=== PATIENT | female | born 1975 | race Caucasian/White ===

== ENCOUNTER 2016-09-20 04:29 | Emergency (ER) | payer OTHER ==
[~2016-09-20] VITALS: Ht 160 cm; Wt 64.0 kg
[~2016-09-20 04:29] MED LIST: HYDR-906 PO; MULT1TAB59 PO; ONDA4TAB11 PO
[2016-09-20 04:33] VITALS: Ht 160 cm; Wt 64.0 kg
[2016-09-20] MEDS ORDERED: DICLOFENAC SODIUM 37.5 MG/ML VIAL IV STA (05:31)
[2016-09-20 05:34] LABS: ADD SCAN DIFF NO
[2016-09-20 05:38] LABS: BASOPHIL # 0.1 10^3/ul (0.0-0.1); BASOPHILS % 0.9 % (0.0-2.0); EOSINOPHILS # 0.2 10^3/ul (0.0-0.5); HEMATOCRIT 36.3 % (37.0-47.0); HEMOGLOBIN 12.4 g/dl (12.0-16.0); LYMPHOCYTES # 2.6 10^3/ul (0.8-2.9); LYMPHOCYTES % 33.2 % (15.0-51.0); MEAN CORPUSCULAR HEMOGLOBIN 30.9 pg (29.0-33.0); MEAN CORPUSCULAR HGB CONC 34.2 g/dl (32.0-37.0); MEAN CORPUSCULAR VOLUME 90.5 fl (82.0-101.0); MEAN PLATELET VOLUME 9.9 fl (7.4-10.4); MONOCYTE # 0.7 10^3/ul (0.3-0.9); MONOCYTES % 9.5 % (0.0-11.0); NEUTROPHIL # 4.1 10^3/ul (1.6-7.5); NEUTROPHILS % 53.1 % (39.0-77.0); PLATELET COUNT 246 10^3/UL (140-415); RED BLOOD COUNT 4.01 10^6/ul (4.20-5.40); RED CELL DISTRIBUTION WIDTH 13.3 % (11.5-14.5); WHITE BLOOD COUNT 7.7 10^3/ul (4.8-10.8)
[2016-09-20] MEDS ORDERED: CITA-104 PO (05:39)
[2016-09-20] MEDS ORDERED: CLON1TAB3 PO (05:39)
[2016-09-20] MEDS ORDERED: QUET25TA33 PO (05:39)
[2016-09-20] MEDS ORDERED: HYDROmorphONE 1 MG/ML SYG IV STA (05:43)
[2016-09-20 05:58] LABS: ADD UMIC YES; URINE BILIRUBIN (Dip) NEGATIVE (NEGATIVE); URINE BLOOD (Dip) 3+ (NEGATIVE); URINE COLOR RED (YELLOW); URINE GLUCOSE (Dip) NEGATIVE (NEGATIVE); URINE KETONES (Dip) NEGATIVE (NEGATIVE); URINE LEUKOCYTE ESTERASE (Dip) TRACE (NEGATIVE); URINE NITRITE (Dip) NEGATIVE (NEGATIVE); URINE TOTAL PROTEIN (Dip) TRACE (NEGATIVE); URINE UROBILINOGEN (Dip) 0.2 E.U./dL (0.1-1.0)
[2016-09-20 05:59] LABS: ALBUMIN 4.2 g/dl (3.3-4.9); BILIRUBIN,INDIRECT 0.1 mg/dl (0-1.1); BILIRUBIN,TOTAL 0.1 mg/dl (0.2-1.3); CALCIUM 8.9 mg/dl (8.4-10.2); CREATININE 0.8 mg/dl (0.44-1.00); POTASSIUM 4.2 mmol/L (3.5-5.1); TOTAL PROTEIN 6.3 g/dl (6.1-8.1)
[2016-09-20] MEDS ORDERED: ONDA4TAB14 PO (06:11)
[2016-09-20] MEDS ORDERED: NITR-58 PO (06:11)
[2016-09-20 06:12] LABS: MUCUS,URINE MODERATE; SQUAMOUS EPITHELIAL CELL,UR FEW; URINE RBCS >200 /HPF (0)
[2016-09-20] MEDS ORDERED: ACETAMINOPHEN 325 MG TAB PO ONE (06:30)
--- NOTE | 2016-09-20 07:31 | ERD ---
ER Documentation Chief Complaint Date/Time DATE: 09/20/16 TIME: 07:29 Chief Complaint RUQ abd pain x 1 day HPI Patient is a 41-year-old female with anxiety who presents with abdominal pain as well as vomiting and diarrhea. The symptoms started yesterday. It right upper quadrant pain which radiates to her back. She also says that she is urinating blood now. She was seen [facility] today for the same complaint and was given morphine and tramadol. Upon review of old medical records this is the patient's 11th visit to the ER since 2011 and review of the emergency department information exchange shows visits to 2 separate emergency departments. ROS All systems reviewed and are negative except as per history of present illness. Medications Home Meds Active Scripts Nitrofurantoin Monohyd Macrocr* (Macrobid*) 100 Mg Capsr, 100 MG PO BID for 7 Days, CAP Prov:ERASMO EPSTEIN MD 09/20/16 Ondansetron (Ondansetron Odt) 4 Mg Tab.rapdis, 4 MG PO Q6H Y for NAUSEA AND/OR VOMITING, #10 TAB Prov:ERASMO EPSTEIN MD 09/20/16 Reported Medications Citalopram Hydrobromide* (Citalopram Hydrobromide*) 40 Mg Tablet, 40 MG PO DAILY , #30 TAB 09/20/16 Quetiapine Fumarate* (Quetiapine Fumarate*) 25 Mg Tablet, 75 MG PO HS, TAB 09/20/16 Clonazepam* (Clonazepam*) 1 Mg Tablet, 5 MG PO Q8H Y for ANXIETY, TAB 09/20/16 Multivitamins* (Multivitamins*) 1 Tab Tablet, 1 TAB PO daily 04/29/12 Discontinued Scripts Ondansetron (Zofran Odt) 4 Mg Tab.rapdis, 4 MG PO Q6, #10 Prov:ANABEL JHA DO 02/05/16 Hydrocodone/Acetaminophen ([place] 5-325 Tablet) 1 Each Tablet, 1 EACH PO Q6, #20 TAB Prov:ANABEL JHA DO 02/05/16 Allergies Allergies: Coded Allergies: morphine (Verified Allergy, Unknown, itch, 09/20/16) sulfamethoxazole (Unverified Allergy, Unknown, 09/20/16) trimethoprim (Unverified Allergy, Unknown, 09/20/16) PMhx/Soc History of Surgery: Yes (appendectomy, left wrist surgery) Anesthesia Reaction: No Hx Neurological Disorder: No Hx Respiratory Disorders: No Hx Cardiac Disorders: No Hx Psychiatric Problems: No Hx Miscellaneous Medical Probl: Yes (mesenteric adenitis) Hx Alcohol Use: Yes (occassional) Hx Substance Use: No Hx Tobacco Use: No Smoking Status: Never smoker FmHx Family History: No diabetes Physical Exam Vitals Vital Signs Date Time Temp Pulse Resp B/P Pulse Ox O2 Delivery O2 Flow Rate FiO2 09/20/16 05:27 80 20 114/92 99 Room Air 09/20/16 04:33 97.7 96 20 107/69 99 Physical Exam Const: Moderate distress secondary to pain Head: Atraumatic Eyes: Normal Conjunctiva ENT: Normal External Ears, Nose and Mouth. Neck: Full range of motion..~ No meningismus. Resp: Clear to auscultation bilaterally Cardio: Regular rate and rhythm, no murmurs Abd: Soft, diffuse tenderness to palpation without rebound or guarding Skin: No petechiae or rashes Back: No midline or flank tenderness Ext: No cyanosis, or edema Neur: Awake and alert Psych: Normal Mood and Affect Result Diagram: 09/20/1652009/20/16520 Results 24 hrs Laboratory Tests Test 09/20/16 05:20 09/20/16 05:21 09/20/16 06:50 Urine Color RED Urine Clarity CLEAR Urine pH 5.0 Urine Specific [place] 1.010 Urine Ketones NEGATIVE Urine Nitrite NEGATIVE Urine Bilirubin NEGATIVE Urine Urobilinogen 0.2 E.U./dL Urine Leukocyte Esterase TRACE Urine Microscopic RBC >200/HPF Urine Microscopic WBC 5-10/HPF Urine Squamous Epithelial Cells FEW Urine Mucus MODERATE Urine Hemoglobin 3+ Urine Glucose NEGATIVE% Urine Total Protein TRACE White Blood Count 7.710^3/ul Red Blood Count 4.0110^6/ul Hemoglobin 12.4g/dl Hematocrit 36.3% Mean Corpuscular Volume 90.5fl Mean Corpuscular Hemoglobin 30.9pg Mean Corpuscular Hemoglobin Concent 34.2g/dl Red Cell Distribution Width 13.3% Platelet Count 65391^3/UL Mean Platelet Volume 9.9fl Neutrophils % 53.1% Lymphocytes % 33.2% Monocytes % 9.5% Eosinophils % 3.0% Basophils % 0.9% Nucleated Red Blood Cells % 0.0/100WBC Neutrophils # 4.110^3/ul Lymphocytes # 2.610^3/ul Monocytes # 0.710^3/ul Eosinophils # 0.210^3/ul Basophils # 0.110^3/ul Nucleated Red Blood Cells # 0.010^3/ul Sodium Level 140mmol/L Potassium Level 4.2mmol/L Chloride Level 108mmol/L Carbon Dioxide Level 27mmol/L Anion Gap 9 Blood Urea Nitrogen 13mg/dl Creatinine 0.80mg/dl Glucose Level 78mg/dl Calcium Level 8.9mg/dl Total Bilirubin 0.1mg/dl Direct Bilirubin 0.00mg/dl Indirect Bilirubin 0.1mg/dl Aspartate Amino Transf (AST/SGOT) 19IU/L Alanine Aminotransferase (ALT/SGPT) 31IU/L Alkaline Phosphatase 46IU/L Total Protein 6.3g/dl Albumin 4.2g/dl Globulin 2.10g/dl Albumin/Globulin Ratio 2.00 Lipase 402U/L Serum HCG, Qualitative NEGATIVE Current Medications Medications (Trade) Dose Ordered Sig/Murray Route PRN Reason Start Time Stop Time Status Last Admin Dose Admin Diclofenac Sodium (Dyloject) 37.5 mg ONCE STAT IV 09/20/16 05:31 09/20/16 05:39 DC Hydromorphone HCl (Dilaudid) 0.5 mg ONCE STAT IV 09/20/16 05:43 09/20/16 05:45 DC 09/20/16 05:46 Acetaminophen (Tylenol Tab) 650 mg ONCE ONCE PO 09/20/16 06:30 09/20/16 06:31 DC 09/20/16 06:32 Procedures/MDM Patient is a 41-year-old male with anxiety who presents with abdominal pain and hematuria. Laboratory studies are basically normal. I doubt cholecystitis, pancreatitis, appendicitis, or bowel obstruction. I do believe there is an element of pain seeking behavior and I will not give this patient narcotics. She was offered anything nonnarcotic and requested Tylenol which I have given. The patient will be discharged home and can follow-up with her primary doctor within 24 hours. I have also given her information for Dr. Martines her pain management doctor. The patient is not I doubt or ectopic . Departure Diagnosis: Primary Impression: Vomiting and diarrhea Additional Impression: Abdominal pain Abdominal location: unspecified location Qualified Code: R10.9 - Abdominal pain, unspecified location Condition: Fair Patient Instructions: Abdominal Pain, Self-Care for Vomiting and Diarrhea Referrals: GERARDO MARTINES Additional Instructions: FOLLOW UP WITH YOUR PRIMARY CARE PHYSICIAN TOMORROW.Return to this facility if you are not improving as expected. ERASMO EPSTEIN MD Sep 20, 2016 07:31
[2016-09-20 07:32] VITALS: BP 91/73; PULSE 60; RESP 17
== END 2016-09-20 07:35 | disposition home or self-care (01) ==
LOC: E/R 04:29
DX: R11.10 Vomiting, unspecified (principal); R19.7 Diarrhea, unspecified; R40.2142 Coma scale, eyes open, spontaneous, at arrival to emergency department; R40.2252 Coma scale, best verbal response, oriented, at arrival to emergency department; R40.2362 Coma scale, best motor response, obeys commands, at arrival to emergency department
CPT/HCPCS: 80053; 81001; 83690; 84703; 85025; J1170; 36415; 96374

== ENCOUNTER 2016-12-06 08:01 | Inpatient (IN) | payer MEDICAID, OTHER ==
[~2016-12-06] VITALS: Ht 157.5 cm; Wt 58.1 kg
[~2016-12-06 08:01] MED LIST changes: +CITA-104 PO; +CLON1TAB3 PO; -HYDR-906 PO; +NITR-58 PO; -ONDA4TAB11 PO; +ONDA4TAB14 PO; +QUET25TA33 PO
[2016-12-06] MEDS ORDERED: LIDOCAINE/MYLANTA 40 ML BTL PO STA (08:15)
--- NOTE | 2016-12-06 08:28 | ERD ---
ER Documentation Chief Complaint Date/Time DATE: 12/06/16 TIME: 08:26 Chief Complaint Complains of abdominal pain and rectal bleed HPI 41-year-old female history of chronic abdominal pain presents with epigastric abdominal pain, blood in stools that started this morning. She reports sharp pain, nonradiating, worse after eating this morning. She denies any fevers, chills, nausea, vomiting or diarrhea. She states that she swallowed an earring it was a small area 2 weeks ago and has not seen any passage of this in her stool since. ROS All systems reviewed and are negative except as per history of present illness. Medications Home Meds Active Scripts Nitrofurantoin Monohyd Macrocr* (Macrobid*) 100 Mg Capsr, 100 MG PO BID for 7 Days, CAP Prov:ERASMO EPSTEIN MD 09/20/16 Ondansetron (Ondansetron Odt) 4 Mg Tab.rapdis, 4 MG PO Q6H Y for NAUSEA AND/OR VOMITING, #10 TAB Prov:ERASMO EPSTEIN MD 09/20/16 Reported Medications Citalopram Hydrobromide* (Citalopram Hydrobromide*) 40 Mg Tablet, 40 MG PO DAILY , #30 TAB 09/20/16 Quetiapine Fumarate* (Quetiapine Fumarate*) 25 Mg Tablet, 75 MG PO HS, TAB 09/20/16 Clonazepam* (Clonazepam*) 1 Mg Tablet, 5 MG PO Q8H Y for ANXIETY, TAB 09/20/16 Multivitamins* (Multivitamins*) 1 Tab Tablet, 1 TAB PO daily 04/29/12 Allergies Allergies: Coded Allergies: morphine (Verified Allergy, Unknown, itch, 09/20/16) sulfamethoxazole (Unverified Allergy, Unknown, 09/20/16) trimethoprim (Unverified Allergy, Unknown, 09/20/16) PMhx/Soc History of Surgery: Yes (appendectomy, left wrist surgery) Anesthesia Reaction: No Hx Neurological Disorder: No Hx Respiratory Disorders: No Hx Cardiac Disorders: No Hx Psychiatric Problems: No Hx Miscellaneous Medical Probl: Yes (mesenteric adenitis) Hx Alcohol Use: Yes (occassional) Hx Substance Use: No Hx Tobacco Use: No Smoking Status: Never smoker Physical Exam Vitals Vital Signs Date Time Temp Pulse Resp B/P Pulse Ox O2 Delivery O2 Flow Rate FiO2 12/06/16 08:04 98.1 113 20 134/80 99 Physical Exam General: Well-developed, well-nourished. The patient appears in no acute distress. HEENT: Head is normocephalic, atraumatic. No scleral icterus. Pupils are equal , round, and reactive. Oral mucous membranes are moist. No pharyngeal erythema. Neck: Supple. Nontender. Lungs: Clear to auscultation. Normal air movement. Heart: Regular rate and rhythm. S1 and S2 are normal. No murmurs, gallops, or rubs. Abdomen: Soft, tender to palpation in the epigastric region, nondistended. Bowel sounds are normoactive. Negative Bain sign, no McBurney's tenderness Rectal; no BRBPR Extremities: No clubbing or cyanosis. Normal pulses. Moving extremities x 4. No weakness. Neurologic: Alert and oriented 3. No focal deficits. Skin: Normal turgor. No rash or lesions. Result Diagram: 12/06/16 0815 12/06/16 0815 Results 24 hrs Laboratory Tests Test 12/06/16 08:00 12/06/16 08:15 Urine Color YELLOW Urine Clarity SLIGHTLY CLOUDY Urine pH 7.0 Urine Specific [place] 1.005 Urine Ketones NEGATIVEmg/dL Urine Nitrite NEGATIVEmg/dL Urine Bilirubin NEGATIVEmg/dL Urine Urobilinogen NEGATIVEmg/dL Urine Leukocyte Esterase NEGATIVELeu/ul Urine Microscopic RBC 0/HPF Urine Microscopic WBC 1/HPF Urine Squamous Epithelial Cells FEW/HPF Urine Bacteria FEW/HPF Urine Hemoglobin NEGATIVEmg/dL Urine Glucose NEGATIVEmg/dL Urine Total Protein NEGATIVEmg/dl Urine Opiates Screen Negative Urine Barbiturates Negative Urine Amphetamines Screen Negative Urine Benzodiazepines Screen Negative Urine Cocaine Screen Negative Urine Cannabinoids Negative White Blood Count 7.410^3/ul Red Blood Count 4.1510^6/ul Hemoglobin 12.3g/dl Hematocrit 38.1% Mean Corpuscular Volume 91.8fl Mean Corpuscular Hemoglobin 29.6pg Mean Corpuscular Hemoglobin Concent 32.3g/dl Red Cell Distribution Width 13.4% Platelet Count 05018^3/UL Mean Platelet Volume 10.3fl Neutrophils % 63.1% Lymphocytes % 25.1% Monocytes % 8.6% Eosinophils % 2.0% Basophils % 0.9% Nucleated Red Blood Cells % 0.0/100WBC Neutrophils # (Manual) 4.710^3/ul Lymphocytes # 1.910^3/ul Monocytes # 0.610^3/ul Eosinophils # 0.210^3/ul Basophils # 0.110^3/ul Nucleated Red Blood Cells # 0.010^3/ul Sodium Level 144mmol/L Potassium Level 4.4mmol/L Chloride Level 103mmol/L Carbon Dioxide Level 28mmol/L Anion Gap 17 Blood Urea Nitrogen 14mg/dl Creatinine 0.75mg/dl Glucose Level 86mg/dl Calcium Level 9.2mg/dl Total Bilirubin 0.0mg/dl Direct Bilirubin 0.00mg/dl Indirect Bilirubin 0.0mg/dl Aspartate Amino Transf (AST/SGOT) 25IU/L Alanine Aminotransferase (ALT/SGPT) 36IU/L Alkaline Phosphatase 55IU/L Total Protein 6.9g/dl Albumin 3.9g/dl Globulin 3.00g/dl Albumin/Globulin Ratio 1.30 Lipase 146U/L Current Medications Medications (Trade) Dose Ordered Sig/Murray Route PRN Reason Start Time Stop Time Status Last Admin Dose Admin Miscellaneous Medication (Gi Cocktail (2)) 40 ml ONCE STAT PO 12/06/16 08:15 12/06/16 08:17 DC 12/06/16 08:31 Magnesium Citrate (Citroma) 300 ml ONCE ONCE PO 12/06/16 10:30 12/06/16 10:31 Radiology Main Line: [phone] DIAGNOSTIC IMAGING REPORT Patient: KAELYN HORTA : 1975 Age: 41 Sex: F [id number] DOS: 12/06/16 0815 Ordering MD: LIZ MCNULTY PA-C Location: [facility] Room/Bed: PROCEDURE: Abdominal Series. CLINICAL INDICATION: Ingested foreign body (earing). TECHNIQUE: Two views of the abdomen. COMPARISON: None. FINDINGS: There is a nonspecific bowel gas pattern. There is no evidence of large or small bowel obstruction. There is a metallic foreign body in the right upper quadrant which may be in the distal stomach, or more likely within the proximal transverse colon. There are no abnormal calcifications overlying the urinary tracts. The osseous structures are unremarkable. IMPRESSION: 1. Metallic foreign body in the right upper quadrant likely within the proximal transverse colon. RPTAT: KK .Rogerio Andre MD, MD Date Time Electronically viewed and signed by .Rogerio Andre MD, MD on 2016 08:53 .B/ CC: LIZ MCNULTY PA-C Procedures/MDM ED COURSE: I reviewed her EMR, patient is familiar to emergency department, she frequently comes in for abdominal pain to the emergency department she has had outpatient workup with gastroenterology for chronic abdominal pain. She states that morphine makes her itchy, she is specifically requesting Dilaudid for pain medication. I have explained to the patient that given that she has a foreign body, it would be contraindicated to give her opioid medication, as it directly inhibits peristalsis. Surgical consultation: I have spoken with the general surgeon, Dr. Moraes. Given her history of blood and abdominal pain, it was agreed that the patient will need admission for observation. We will titrate magnesium citrate. Medical decision makin-year-old female presents with mid abdominal pain, and evidence of a swallowed foreign body that appears to be an earring. Patient has an approximate 11 mm x 8 mm foreign body in her proximal transverse colon. She has a history of blood in her stools but she is no bright red blood per rectum on examination. She will be admitted for observation at this time, patient will be sent to emergency department 1, admitted by Dr. Fernandes. The case was reviewed and discussed with Dr. Fernandes who agrees with the plan of care including labs, treatment, and advanced imaging as appropriate. Departure Diagnosis: Primary Impression: Swallowed foreign body Additional Impression: Abdominal pain Condition: Stable LIZ MCNULTY PA-C Dec 06, 2016 08:27
--- NOTE | 2016-12-06 08:53 | RADRPT ---
PROCEDURE: Abdominal Series. CLINICAL INDICATION: Ingested foreign body (earing). TECHNIQUE: Two views of the abdomen. COMPARISON: None. FINDINGS: There is a nonspecific bowel gas pattern. There is no evidence of large or small bowel obstruction. There is a metallic foreign body in the right upper quadrant which may be in the distal stomach, or more likely within the proximal transverse colon. There are no abnormal calcifications overlying the urinary tracts. The osseous structures are unremarkable. IMPRESSION: 1. Metallic foreign body in the right upper quadrant likely within the proximal transverse colon. RPTAT: KK .Rogerio Andre MD, MD Date Time Electronically viewed and signed by .Rogerio Andre MD, MD on 12/06/2016 08:53 .B/
[2016-12-06 09:20] LABS: BASOPHIL # 0.1 10^3/ul (0.0-0.1); BASOPHILS % 0.9 % (0.0-2.0); EOSINOPHILS # 0.2 10^3/ul (0.0-0.5); HEMATOCRIT 38.1 % (37.0-47.0); HEMOGLOBIN 12.3 g/dl (12.0-16.0); LYMPHOCYTES # 1.9 10^3/ul (0.8-2.9); LYMPHOCYTES % 25.1 % (15.0-51.0); MEAN CORPUSCULAR HEMOGLOBIN 29.6 pg (29.0-33.0); MEAN CORPUSCULAR HGB CONC 32.3 g/dl (32.0-37.0); MEAN CORPUSCULAR VOLUME 91.8 fl (82.0-101.0); MEAN PLATELET VOLUME 10.3 fl (7.4-10.4); MONOCYTE # 0.6 10^3/ul (0.3-0.9); MONOCYTES % 8.6 % (0.0-11.0); NEUTROPHILS % 63.1 % (39.0-77.0); PLATELET COUNT 248 10^3/UL (140-415); RED BLOOD COUNT 4.15 10^6/ul (4.20-5.40); RED CELL DISTRIBUTION WIDTH 13.4 % (11.5-14.5); WHITE BLOOD COUNT 7.4 10^3/ul (4.8-10.8)
[2016-12-06 09:37] LABS: ALBUMIN 3.9 g/dl (3.3-4.9); ALBUMIN/GLOBULIN RATIO 1.3; CALCIUM 9.2 mg/dl (8.4-10.2); CREATININE 0.75 mg/dl (0.44-1.00); POTASSIUM 4.4 mmol/L (3.5-5.1); TOTAL PROTEIN 6.9 g/dl (6.1-8.1)
[2016-12-06 09:44] LABS: ADD UMIC NO; UR ASCORBIC ACID NEGATIVE (NEGATIVE); UR BACTERIA FEW /HPF (NONE SEEN); UR BILIRUBIN (Dip) NEGATIVE (NEGATIVE); UR BLOOD (Dip) NEGATIVE (NEGATIVE); UR CLARITY SLIGHTLY CLOUDY (CLEAR); UR COLOR YELLOW (YELLOW); UR GLUCOSE (Dip) NEGATIVE (NEGATIVE); UR KETONES (Dip) NEGATIVE (NEGATIVE); UR LEUKOCYTE ESTERASE (Dip) NEGATIVE Leu/ul (NEGATIVE); UR NITRITE (Dip) NEGATIVE (NEGATIVE); UR RBC 0 /HPF (0-5); UR SPECIFIC GRAVITY (Dip) 1.005 (1.003-1.030); UR SQUAMOUS EPITHELIAL CELL FEW /HPF (FEW); UR TOTAL PROTEIN (Dip) NEGATIVE (NEGATIVE); UR UROBILINOGEN (Dip) NEGATIVE (NEGATIVE)
[2016-12-06 10:01] LABS: OPIATES Negative (NEGATIVE)
[2016-12-06 10:03] LABS: BARBITURATES Negative (NEGATIVE); BENZODIAZEPINES Negative (NEGATIVE); CANNABINOIDS Negative (NEGATIVE); COCAINE Negative (NEGATIVE)
[2016-12-06] MEDS ORDERED: MAGNESIUM CITRATE 300 ML BTL PO ONE (10:30)
[2016-12-06 12:59] VITALS: Ht 157.5 cm; Wt 58.1 kg
[2016-12-06 13:00] VITALS: BP 102/65; RESP 18
[2016-12-06] MEDS ORDERED: NA PHOSPHATE/BIPHOS 133 ML ENEMA PR PRN (13:30)
[2016-12-06] MEDS ORDERED: NITROGLYCERIN (SL) 0.4 MG TAB SL PRN (13:30)
[2016-12-06] MEDS ORDERED: NACL 0.9% 3 ML SYG IV SCH (13:30)
[2016-12-06] MEDS ORDERED: morphine 2 MG INJ IV PRN (13:30)
[2016-12-06] MEDS ORDERED: ACETAMINOPHEN 325 MG TAB PO PRN (13:30)
[2016-12-06] MEDS ORDERED: ONDANSETRON 4 MG INJ IV PRN (13:30)
[2016-12-06] MEDS ORDERED: hydrALAzine 20 MG INJ IV PRN (13:30)
[2016-12-06] MEDS ORDERED: MAGNESIUM HYDROXIDE 30ML CUP PO PRN (13:30)
[2016-12-06] MEDS ORDERED: ALBUTEROL/IPRATROPIUM (NEB) 3 ML AMP HHN PRN (13:30)
[2016-12-06] MEDS ORDERED: DOCUSATE SODIUM 100 MG CAP PO PRN (13:30)
[2016-12-06] MEDS ORDERED: HYDROCODONE/APAP (5/325) TAB PO PRN (13:30)
[2016-12-06] MEDS: SOD CHLORIDE 0.45% 1,000 ML IV SCH (13:38)
--- NOTE | 2016-12-06 14:13 | EN ---
Date/Time of Note Date/Time of Note DATE: 12/06/16 TIME: 14:07 ER Progress Note The patient presented with diffuse abdominal pain and states she accidentally swallowed a study earring about 2 weeks ago. I have seen and evaluated the patient along with the PA and/or F[employer]NACE COMBU[employer]ION TESTER provider. I agree with the evaluation and plan of care. Please see their documentation for full ER course and evaluation. Initial presentation: Abdominal pain On exam: Abdominal: Soft nontender, no guarding or rigidity Assessment and plan: We spoke to the floor finisher on-call who recommended admission for possible colonoscopy and foreign body retrieval. Accepting care team and consultations: I discussed the current laboratory data, diagnostic imaging and emergency care provided. Admitting team: Dr. Tyler, further labs, imaging if indicated, and analgesic management will be deferred to inpatient team Admitting team indication: Insurance directed Consulting services: GI consulted and notified Diagnostic impression: Large bowel foreign body REKHA GOMES MD Dec 06, 2016 14:13
[2016-12-06] MEDS: LORAZEPAM 2 MG INJ IV PRN (15:28)
[2016-12-06 15:29] LABS: INR 0.89; PARTIAL THROMBOPLASTIN TIME 26.3 Sec (25.0-35.0); PT RATIO 0.9
[2016-12-06] MEDS ORDERED: KETOROLAC 30 MG INJ IV PRN (15:30)
[2016-12-06] MEDS ORDERED: HYDROmorphONE 1 MG/ML SYG IV STA (15:44)
--- NOTE | 2016-12-06 18:26 | CONS ---
Date/Time of Note Date/Time of Note DATE: 12/06/16 TIME: 18:24 Assessment/Plan Assessment/Plan Additional Assessment/Plan Assessment: * Foreign body in the transverse colon * Irritable bowel syndrome * Severe anxiety Plan: * Colonoscopy prep * Repeat KUB tomorrow foreign bodies still present in the colon consider colonoscopy * Patient was informed of the plan of action including colonoscopy risks, benefits and alternatives. She is agreeable to proceed Consultation Date/Type/Reason Admit Date/Time Dec 06, 2016 at 10:31 Date of Consultation: Dec 06, 2016 Reason for Consultation Foreign body Hx of Present Illness 41-year-old female with previous history of ureteral bowel syndrome and apparently multiple visits to the emergency room. Condition the patient presented with a previous history of swelling fully adhering 2 weeks prior. The patient has not seen the hearing, out and has developed significant abdominal pain and extreme anxiety regarding the possibility of injury related to need for foreign body or foreign bodies in hearing he was trying to open up when she accidentally swallowed it. An abdominal x-ray in the emergency room showed a foreign body in the transverse colon. No evidence of GI injury is present. The patient however is cream epigastric abdominal pain but there appears to be a significant discrepancy between her abdomen and description of the pain and what objectively appears to be happening. The patient at any rate is extremely anxious and wishes to have foreign body removed somehow during this observation. I have explained that all that we can do now is to give her laxatives essentially colonoscopy preparation and hope that that results in spontaneous exit of the foreign body and if these were not to be the case a colonoscopy will have to be performed to remove the foreign body. The risks, benefits and alternatives: As well as the course of action were discussed with patient. She is agreeable to proceed Constitutional: improved, no complaints Eyes: no complaints ENT: no complaints Respiratory: no complaints Cardiovascular: no complaints Gastrointestinal: no complaints, other (See HPI) Genitourinary: no complaints Musculoskeletal: no complaints Skin: no complaints Neurologic: no complaints Endocrine: no complaints Lymphatic: no complaints Psychological: nl mood/affect, no complaints Immunologic: no complaints Past Medical History Irritable bowel syndrome Anxiety disorder Past Surgical History Past Surgical Hx: no surgical history Family History Significant Family History: no pertinent family hx Social History Alcohol Use: rarely Smoking Status: Current every day smoker Drug Use: none Exam/Review of Systems Vital Signs Vitals Vital Signs Date Time Temp Pulse Resp B/P Pulse Ox O2 Delivery O2 Flow Rate FiO2 12/06/16 13:00 98.2 77 18 102/65 99 12/06/16 10:51 Room Air Exam Constitutional: alert, oriented, well developed Psych: nl mood/affect, no complaints Head: atraumatic, normocephalic Eyes: EOMI, PERRL, nl conjunctiva, nl lids, nl sclera ENMT: nl external ears & nose, nl lips & teeth, nl nasal mucosa & septum Neck: non-tender, supple Respiratory: clear to auscultation, normal air movement Cardiovascular: nl pulses, regular rate and rhythm Gastrointestinal: bowel sounds, nl liver, spleen, soft, tender (Fiercely tender ), No ascites, No distended, No mass, No rebound or guarding Musculoskeletal: nl extremities to inspection Extremities: normal pulses Neurological: UNIT SUPPORT REPRESENTATIVE II-XII intact, nl mental status, nl speech, nl strength Skin: nl turgor, No rash or lesions Lymph: nl lymph nodes Results Result Diagram: 12/06/16 0815 12/06/16 0815 Results 24 hrs Laboratory Tests Test 12/06/16 08:00 12/06/16 08:15 12/06/16 14:41 Urine Color YELLOW Urine Clarity SLIGHTLY CLOUDY A Urine pH 7.0 Urine Specific [place] 1.005 Urine Ketones NEGATIVE Urine Nitrite NEGATIVE Urine Bilirubin NEGATIVE Urine Urobilinogen NEGATIVE Urine Leukocyte Esterase NEGATIVE Urine Microscopic RBC 0 Urine Microscopic WBC 1 Urine Squamous Epithelial Cells FEW Urine Bacteria FEW A Urine Hemoglobin NEGATIVE Urine Glucose NEGATIVE Urine Total Protein NEGATIVE Urine Opiates Screen Negative Urine Barbiturates Negative Urine Amphetamines Screen Negative Urine Benzodiazepines Screen Negative Urine Cocaine Screen Negative Urine Cannabinoids Negative White Blood Count 7.4 Red Blood Count 4.15 L Hemoglobin 12.3 Hematocrit 38.1 Mean Corpuscular Volume 91.8 Mean Corpuscular Hemoglobin 29.6 Mean Corpuscular Hemoglobin Concent 32.3 Red Cell Distribution Width 13.4 Platelet Count 248 Mean Platelet Volume 10.3 Neutrophils % 63.1 Lymphocytes % 25.1 Monocytes % 8.6 Eosinophils % 2.0 Basophils % 0.9 Nucleated Red Blood Cells % 0.0 Neutrophils # (Manual) 4.7 Lymphocytes # 1.9 Monocytes # 0.6 Eosinophils # 0.2 Basophils # 0.1 Nucleated Red Blood Cells # 0.0 Sodium Level 144 Potassium Level 4.4 Chloride Level 103 Carbon Dioxide Level 28 Anion Gap 17 H Blood Urea Nitrogen 14 Creatinine 0.75 Glucose Level 86 Calcium Level 9.2 Total Bilirubin 0.0 L Direct Bilirubin 0.00 Indirect Bilirubin 0.0 Aspartate Amino Transf (AST/SGOT) 25 Alanine Aminotransferase (ALT/SGPT) 36 Alkaline Phosphatase 55 Total Protein 6.9 Albumin 3.9 Globulin 3.00 Albumin/Globulin Ratio 1.30 Lipase 146 Prothrombin Time 12.0 L Prothrombin Time Ratio 0.9 INR International Normalized Ratio 0.89 Activated Partial Thromboplast Time 26.3 Free Thyroxine 0.85 Medications Medications Current Medications Citalopram Hydrobromide (Celexa) 40 mg DAILY PO ; Start 12/07/16 at 09:00 Multivitamins Therapeutic (Theragran) 1 tab daily PO ; Start 12/07/16 at 09:00 Quetiapine Fumarate (Seroquel) 75 mg HS PO ; Start 12/06/16 at 21:00 Ondansetron HCl (Zofran Inj) 4 mg Q6H PRN IV NAUSEA AND/OR VOMITING; Start at 13:30 Acetaminophen (Tylenol Tab) 650 mg Q6H PRN PO PAIN LEVEL 1-3 OR FEVER; Start at 13:30 Acetaminophen/ Hydrocodone Bitart ([place] (5/325)) 1 tab Q6H PRN PO MODERATE PAIN LEVEL 4-6; Start 12/06/16 at 13:30 Docusate Sodium (Colace) 100 mg Q12H PRN PO CONSTIPATION; Start 12/06/16 at 13: 30 Magnesium Hydroxide (Milk Of Mag) 30 ml DAILY PRN PO CONSTIPATION; Start at 13:30 Sodium Biphosphate/ Sodium Phosphate (Fleet Enema) 133 ml DAILY PRN [place] CONSTIPATION; Start 12/06/16 at 13:30 Pantoprazole 40 mg 40 mg DAILY@06 IV ; Start 12/07/16 at 06:00 Sodium Chloride (1/2 NS) 1,000 ml @ 75 mls/hr [id number] IV Last administered on 12/06/16 13:38; Admin Dose 75 MLS/HR; Start 12/06/16 at 13:15 Lorazepam (Ativan) 0.5 mg Q6H PRN IV ANXIETY Last administered on 8/31/17at 15: 28; Admin Dose 0.5 MG; Start 12/06/16 at 13:30 Hydralazine HCl (Apresoline) 10 mg Q6H PRN IV ELEVATED BLOOD PRESSURE; Start at 13:30 Nitroglycerin (Nitroglycerin (Sl Tab) 0.4 Mg) 1 tab Q5M PRN SL ANGINA; Start at 13:30 Nicotine (Nicoderm 21 Mg/ 24hr) 1 patch DAILY TRANSDERM ; Start 12/06/16 at 18: 00 BECCA SALEEM MD Dec 06, 2016 18:26
[2016-12-06] MEDS: NICOTINE (21 MG/24 HR) PATCH TRANSDERM SCH (18:58)
[2016-12-06 20:00] VITALS: BP 119/92; RESP 20
[2016-12-06] MEDS: DIPHENHYDRAMINE 50 MG INJ IV PRN (20:20)
[2016-12-06] MEDS: morphine 4 MG/ML VIAL IV PRN (20:21)
[2016-12-06] MEDS: QUETIAPINE 25 MG TAB PO SCH (21:00)
[2016-12-07] MEDS: morphine 4 MG/ML VIAL IV PRN ×6 (00:27→22:09)
[2016-12-07] MEDS: SOD CHLORIDE 0.45% 1,000 ML IV SCH ×3 (00:30→18:09)
[2016-12-07] MEDS: LORAZEPAM 2 MG INJ IV PRN (01:24)
[2016-12-07 02:00] VITALS: BP 118/87; RESP 20
[2016-12-07] MEDS: DIPHENHYDRAMINE 50 MG INJ IV PRN ×3 (02:48→18:14)
[2016-12-07] MEDS: PANTOPRAZOLE 40 MG INJ IV SCH (05:54)
[2016-12-07 06:19] LABS: BASOPHIL # 0.1 10^3/ul (0.0-0.1); BASOPHILS % 0.9 % (0.0-2.0); EOSINOPHILS # 0.4 10^3/ul (0.0-0.5); EOSINOPHILS % 5.3 % (0.0-7.0); HEMATOCRIT 36.5 % (37.0-47.0); HEMOGLOBIN 11.5 g/dl (12.0-16.0); LYMPHOCYTES # 1.8 10^3/ul (0.8-2.9); MEAN CORPUSCULAR HEMOGLOBIN 29.3 pg (29.0-33.0); MEAN CORPUSCULAR HGB CONC 31.5 g/dl (32.0-37.0); MEAN CORPUSCULAR VOLUME 93.1 fl (82.0-101.0); MEAN PLATELET VOLUME 10.4 fl (7.4-10.4); MONOCYTE # 0.6 10^3/ul (0.3-0.9); MONOCYTES % 8.1 % (0.0-11.0); NEUTROPHILS % 58.4 % (39.0-77.0); PLATELET COUNT 210 10^3/UL (140-415); RED BLOOD COUNT 3.92 10^6/ul (4.20-5.40); RED CELL DISTRIBUTION WIDTH 13.9 % (11.5-14.5); WHITE BLOOD COUNT 6.8 10^3/ul (4.8-10.8)
[2016-12-07 06:46] LABS: CALCIUM 8.2 mg/dl (8.4-10.2); CHOL/HDL RATIO 3.7 RATIO; CREATININE 0.77 mg/dl (0.44-1.00); MAGNESIUM 2.6 mg/dl (1.7-2.5); PHOSPHORUS 3.6 mg/dl (2.5-4.9); POTASSIUM 4.8 mmol/L (3.5-5.1)
--- NOTE | 2016-12-07 07:12 | HP ---
Date/Time of Note Date/Time of Note DATE: 12/07/16 TIME: 07:08 Assessment/Plan VTE Prophylaxis VTE Prophylaxis Intervention: SCD's Lines/Catheters IV Catheter Type (from Nrsg): Peripheral IV Assessment/Plan Assessment/Plan 1. Foreign body in the proximal transverse colon: This correlates to the earring that pt swallowed about 2 weeks ago -Evaluated by GI was planned for colonoscopy -Continue pain management as needed 2. History of IBS and chronic abdominal pain -Pain management while in-house HPI/ROS Admit Date/Time Admit Date/Time Dec 06, 2016 at 10:31 Hx of Present Illness This is a 41-year-old female with a history of chronic abdominal pain, irritable bowel syndrome who presents to the emergency department complaining of abdominal pain and bloody stool. About 2 weeks ago, patient's accidentally swallowed an earring and since then she has been experiencing sharp abdominal pain and started noticing bloody stool as well. When she presented to the ER she was tachycardic with a heart rate of 113 otherwise vitals were stable. CBC and a CMP were also within normal limits. KUB shows a metallic body in the proximal transverse colon. She has already been seen by GI was planned for a colonoscopy. . ROS Eyes: no complaints ENT: no complaints Respiratory: no complaints Cardiovascular: no complaints Gastrointestinal: no complaints, other (See HPI) Genitourinary: no complaints Musculoskeletal: no complaints Skin: no complaints Neurologic: no complaints Lymphatic: no complaints Psychological: nl mood/affect, no complaints Immunologic: no complaints PMH/Family/Social Past Medical History Medical History: irritable bowel syndrome Past Surgical History Past Surgical Hx: no surgical history Social History Alcohol Use: rarely Smoking Status: Current every day smoker Drug Use: none Exam/Review of Systems Vital Signs Vitals Vital Signs Date Time Temp Pulse Resp B/P Pulse Ox O2 Delivery O2 Flow Rate FiO2 12/07/16 02:00 97.8 58 20 118/87 97 12/06/16 10:51 Room Air Intake and Output 12/06/16 12/06/16 12/07/16 15:00 23:00 07:00 Intake Total 375 ml 962 ml Balance 375 ml 962 ml Exam Constitutional: alert, oriented, well developed Head: atraumatic, normocephalic Eyes: EOMI, PERRL Respiratory: clear to auscultation, normal air movement Cardiovascular: nl pulses, regular rate and rhythm Gastrointestinal: soft, tender Extremities: normal pulses Labs Result Diagram: 12/07/1653212/07/16532 Medications Medications Current Medications Citalopram Hydrobromide (Celexa) 40 mg DAILY PO ; Start 12/07/16 at 09:00 Multivitamins Therapeutic (Theragran) 1 tab daily PO ; Start 12/07/16 at 09:00 Quetiapine Fumarate (Seroquel) 75 mg HS PO ; Start 12/06/16 at 21:00 Ondansetron HCl (Zofran Inj) 4 mg Q6H PRN IV NAUSEA AND/OR VOMITING; Start at 13:30 Acetaminophen (Tylenol Tab) 650 mg Q6H PRN PO PAIN LEVEL 1-3 OR FEVER; Start at 13:30 Acetaminophen/ Hydrocodone Bitart ([place] (5/325)) 1 tab Q6H PRN PO MODERATE PAIN LEVEL 4-6; Start 12/06/16 at 13:30 Docusate Sodium (Colace) 100 mg Q12H PRN PO CONSTIPATION; Start 12/06/16 at 13: 30 Magnesium Hydroxide (Milk Of Mag) 30 ml DAILY PRN PO CONSTIPATION; Start at 13:30 Sodium Biphosphate/ Sodium Phosphate (Fleet Enema) 133 ml DAILY PRN [place] CONSTIPATION; Start 12/06/16 at 13:30 Pantoprazole 40 mg 40 mg DAILY@06 IV Last administered on 12/07/16 05:54; Admin Dose 40 MG; Start 12/07/16 at 06:00 Sodium Chloride (1/2 NS) 1,000 ml @ 75 mls/hr [id number] IV Last administered on 12/07/16 00:30; Admin Dose 75 MLS/HR; Start 12/06/16 at 13:15 Lorazepam (Ativan) 0.5 mg Q6H PRN IV ANXIETY Last administered on 12/07/16 01: 24; Admin Dose 0.5 MG; Start 12/06/16 at 13:30 Hydralazine HCl (Apresoline) 10 mg Q6H PRN IV ELEVATED BLOOD PRESSURE; Start at 13:30 Nitroglycerin (Nitroglycerin (Sl Tab) 0.4 Mg) 1 tab Q5M PRN SL ANGINA; Start at 13:30 Nicotine (Nicoderm 21 Mg/ 24hr) 1 patch DAILY TRANSDERM Last administered on 18:58; Admin Dose 1 PATCH; Start 12/06/16 at 18:00 Morphine Sulfate (morphine) 4 mg Q4H PRN IV pain Last administered on 12/07/16 05:04; Admin Dose 4 MG; Start 12/06/16 at 20:00 Diphenhydramine HCl (Benadryl) 25 mg Q6H PRN IV itching Last administered on 02:48; Admin Dose 25 MG; Start 12/06/16 at 20:00 COLE MENDEZ MD Dec 07, 2016 07:12
[2016-12-07 07:42] LABS: THYROID STIMULATING HORMONE 3.95 MIU/L (0.465-4.680)
[2016-12-07 08:14] VITALS: BP 109/74; RESP 16
[2016-12-07] MEDS: LACTULOSE 30ML CUP PO SCH ×4 (08:29→11:26)
[2016-12-07] MEDS: NICOTINE (21 MG/24 HR) PATCH TRANSDERM SCH (08:30)
[2016-12-07] MEDS ORDERED: BISACODYL (EC) 5 MG TAB PO ONE (10:30)
[2016-12-07] MEDS ORDERED: MAGNESIUM CITRATE 300 ML BTL PO ONE ×2 (10:30→18:00)
[2016-12-07] MEDS ORDERED: POLYETHYLENE GLYCOL 3350 119 GM POWDER PO ONE (10:30)
[2016-12-07] MEDS ORDERED: METOCLOPRAMIDE 10 MG INJ IV ONE (10:30)
--- NOTE | 2016-12-07 10:51 | PN ---
Date/Time of Note Date/Time of Note DATE: 12/07/16 TIME: 10:42 Assessment/Plan VTE Prophylaxis VTE Prophylaxis Intervention: SCD's Lines/Catheters IV Catheter Type (from Nrsg): Peripheral IV Assessment/Plan Chief Complaint/Hosp Course 1. Unintentional Foreign body ingestion 12/06/16:Abdomen Xray: Metallic foreign body in the right upper quadrant likely within the proximal transverse colon. -GI eval appreciated. On colon prep - if no spontaneous expel doesnot happen proceed with colonoscopy -Continue pain management as needed 2. Anxiety disorders -Continue Ativan and Supportive care PLAN:F/u with GI recs on foreign body removal. Case discussed with Problems: Subjective 24 Hr Interval Summary Free Text/Dictation Patient with continued pain on abdomen. Exam/Review of Systems Vital Signs Vitals Vital Signs Date Time Temp Pulse Resp B/P Pulse Ox O2 Delivery O2 Flow Rate FiO2 12/07/16 08:14 97.7 84 16 109/74 100 12/06/16 10:51 Room Air Intake and Output 12/06/16 12/06/16 12/07/16 15:00 23:00 07:00 Intake Total 375 ml 962 ml Balance 375 ml 962 ml Exam General: Anxious female, not in any acute distress . HEENT: Normocephalic, Atraumatic, No laceration or hematoma; Eyes: PEERL, Conjunctiva clear, Anicteric sclera Neck: Supple without any lymphadenopathy, nontender, no JVD, no carotid bruits, trachea midline, no thyromegaly Cardiac: S1, S2 auscultated, regular rhythm and rate, no mumurs or gallop Pulmonary: Normal respiratory effort. Chest clear to auscultation bilaterally, no adventitious breath sounds GI: Generalized tenderness to all 4 quadrants. Abdomen normal to inspection. Soft, no masses, no rebound tenderness or guarding. Bowel sounds active on all four quadrants Genitourinary: Deferred Extremities: No cyanosis, clubbing, or edema. Pulses [2+] bilaterally. Full ROM on all four extremities. No focal weakness appreciated. Neurologic: Anxiety+ Alert to person, place, time, and situation. Affect appropriate, intact sensation. Skin: Clean,dry, and intact. No ecchymosis, no rashes, or lesions Results Result Diagram: 12/07/1633 12/07/16532 Results 24 hrs Laboratory Tests Test 12/06/16 14:41 12/07/16 05:33 Prothrombin Time 12.0 L Prothrombin Time Ratio 0.9 INR International Normalized Ratio 0.89 Activated Partial Thromboplast Time 26.3 Free Thyroxine 0.85 White Blood Count 6.8 Red Blood Count 3.92 L Hemoglobin 11.5 L Hematocrit 36.5 L Mean Corpuscular Volume 93.1 Mean Corpuscular Hemoglobin 29.3 Mean Corpuscular Hemoglobin Concent 31.5 L Red Cell Distribution Width 13.9 Platelet Count 210 Mean Platelet Volume 10.4 Neutrophils % 58.4 Lymphocytes % 27.0 Monocytes % 8.1 Eosinophils % 5.3 Basophils % 0.9 Nucleated Red Blood Cells % 0.0 Neutrophils # (Manual) 4.0 Lymphocytes # 1.8 Monocytes # 0.6 Eosinophils # 0.4 Basophils # 0.1 Nucleated Red Blood Cells # 0.0 Sodium Level 141 Potassium Level 4.8 Chloride Level 107 Carbon Dioxide Level 30 Anion Gap 9 # Blood Urea Nitrogen 9 Creatinine 0.77 Glucose Level 76 Hemoglobin A1c 5.1 Calcium Level 8.2 L Phosphorus Level 3.6 Magnesium Level 2.6 H Triglycerides Level 103 Cholesterol Level 136 LDL Cholesterol, Calculated 79 HDL Cholesterol 36 Cholesterol/HDL Ratio 3.7 Thyroid Stimulating Hormone (TSH) 3.950 Medications Medications Current Medications Citalopram Hydrobromide (Celexa) 40 mg DAILY PO ; Start 12/07/16 at 09:00 Multivitamins Therapeutic (Theragran) 1 tab daily PO ; Start 12/07/16 at 09:00 Quetiapine Fumarate (Seroquel) 75 mg HS PO ; Start 12/06/16 at 21:00 Ondansetron HCl (Zofran Inj) 4 mg Q6H PRN IV NAUSEA AND/OR VOMITING; Start at 13:30 Acetaminophen (Tylenol Tab) 650 mg Q6H PRN PO PAIN LEVEL 1-3 OR FEVER; Start at 13:30 Acetaminophen/ Hydrocodone Bitart ([place] (5/325)) 1 tab Q6H PRN PO MODERATE PAIN LEVEL 4-6; Start 12/06/16 at 13:30 Docusate Sodium (Colace) 100 mg Q12H PRN PO CONSTIPATION; Start 12/06/16 at 13: 30 Magnesium Hydroxide (Milk Of Mag) 30 ml DAILY PRN PO CONSTIPATION; Start at 13:30 Sodium Biphosphate/ Sodium Phosphate (Fleet Enema) 133 ml DAILY PRN [place] CONSTIPATION; Start 12/06/16 at 13:30 Pantoprazole 40 mg 40 mg DAILY@06 IV Last administered on 12/07/16 05:54; Admin Dose 40 MG; Start 12/07/16 at 06:00 Sodium Chloride (1/2 NS) 1,000 ml @ 75 mls/hr [id number] IV Last administered on 12/07/16 00:30; Admin Dose 75 MLS/HR; Start 12/06/16 at 13:15 Lorazepam (Ativan) 0.5 mg Q6H PRN IV ANXIETY Last administered on 12/07/16 01: 24; Admin Dose 0.5 MG; Start 12/06/16 at 13:30 Hydralazine HCl (Apresoline) 10 mg Q6H PRN IV ELEVATED BLOOD PRESSURE; Start at 13:30 Nitroglycerin (Nitroglycerin (Sl Tab) 0.4 Mg) 1 tab Q5M PRN SL ANGINA; Start at 13:30 Nicotine (Nicoderm 21 Mg/ 24hr) 1 patch DAILY TRANSDERM Last administered on 08:30; Admin Dose 1 PATCH; Start 12/06/16 at 18:00 Morphine Sulfate (morphine) 4 mg Q4H PRN IV pain Last administered on 12/07/16 09:25; Admin Dose 4 MG; Start 12/06/16 at 20:00 Diphenhydramine HCl (Benadryl) 25 mg Q6H PRN IV itching Last administered on 09:25; Admin Dose 25 MG; Start 12/06/16 at 20:00 Lactulose (Enulose) 40 gm Q1HWA PO Last administered on 12/07/16 10:16; Admin Dose 40 GM; Start 12/07/16 at 08:00; Stop 12/07/16 at 11:01 JASMYN LUO NP Dec 07, 2016 10:51
[2016-12-07] MEDS: CITALOPRAM 20 MG TAB PO SCH (11:26)
[2016-12-07] MEDS: MULTIVITAMINS THERAPEUTIC TAB PO SCH (11:26)
--- NOTE | 2016-12-07 13:58 | RADRPT ---
PROCEDURE: Abdominal Series. CLINICAL INDICATION: Ingested foreign body (earing). TECHNIQUE: Two views of the abdomen. COMPARISON: 12/06/2016. FINDINGS: There is a nonspecific bowel gas pattern. There is no evidence of large or small bowel obstruction. There is a metallic foreign body consistent with given history of ingested layering, not seen in the right lower quadrant overlying the region of the cecum/ileocecal junction. There is a new second d umb-silva shaped metallic density in the left upper quadrant, overlying the expected region of the ga stric fundus, measuring 1.3 x 0.3 cm. There is no evidence of free air, however evaluation for free air is limited on this supine exam. There are no abnormal calcifications overlying the urinary tract s. The osseous structures are unremarkable. IMPRESSION: 1. The previous seen metallic density consistent with congestive ring is not seen in the right lowe r quadrant, overlying the expected region of the ileocecal junction/cecum. 2. Second, new dumb-silva shaped metallic density seen in the left upper quadrant, overlying the exp ected region of the gastric fundus, not present on the prior exam. RPTAT: JJ .Facundo Bellamy MD, Date Time Electronically viewed and signed by .Facundo Bellamy MD, on 12/07/2016 13:58 .A/
[2016-12-07 14:00] VITALS: BP 113/71; RESP 16
[2016-12-07] MEDS ORDERED: PROPOFOL 20 ML ONE (16:41)
[2016-12-07] MEDS ORDERED: LIDOCAINE 2% (SDV) 5 ML INJ ONE (16:41)
[2016-12-07] MEDS ORDERED: MIDAZOLAM 1 MG/ML 2 ML INJ ONE (16:42)
--- NOTE | 2016-12-07 16:48 | OPR ---
Date/Time of Note Date/Time of Note DATE: 12/07/16 TIME: 16:45 Operative Report Free Text/Dictation Recommendations: 1. psych consult as the metallic object appears to be new and not present yesterday, indicating that she ingested it between yesterday and today while in the hospital 2. bowel prep with GoLytely 3. NPO 4. repeat colonoscopy tomorrow AM Procedure Date: Dec 07, 2016 Preoperative Diagnosis foreign body ingestion Postoperative Diagnosis foreign body ingestion Operation Performed EGD with metallic foreign body retrieval via large biopsy forcep incomplete colonoscopy due to extremely poor bowel prep Surgeon: REKHA GRISSOM MD Anesthesia Type: MAC Anesthesiologist: PAYTON POLLARD DO Estimated Blood Loss: minimal Transfusion Required: no Specimen: none Grafts/Implants: none Complications: no Pt Condition Post Procedure: stable Disposition: PACU Indications foreign body ingestion Operative\Procedure Findings EGD 1. erythematous antrum 2. metallic object in the fundus, grabbed by large biopsy forcep on retroflexed view and removed. Colonoscopy 1. extremely poor bowel prep Procedure Description After timeout and confirming informed consent, patient was sedated by Dr. Pollard. After adequate sedation, I inserted an adult EGD scope from the mouth and advanced to second portion of the duodenum. I then withdraw the EGD scope to the stomach where I performed retroflexion in the body to examine the fundus and cardia. I then suctioned out the air in the stomach while examine the esophagus circumferentially. GEJ and Z line at 39 cm, no hiatal hernia. After the completion of the EGD, patient was turned around for colonoscopy. I performed IVÁN which has clumps of pasty stool on my digit. I then inserted an adult colonoscope from the anus and advanced past the splenic flexure at 50 cm. I cannot visualize anything due to poor bowel prep. Thus I aborted the procedure to re-prep and repeat colonoscopy tomorrow for foreign body retrieval tomorrow AM after another bowel prep. REKHA GRISSOM MD Dec 07, 2016 16:48
[2016-12-07 17:45] VITALS: BP 102/67; PULSE 64; RESP 18
[2016-12-07] MEDS ORDERED: PEG/ELECTROLYTES 4L BTL PO ONE (18:00)
[2016-12-07 19:53] VITALS: BP 105/80; RESP 20
[2016-12-07] MEDS: QUETIAPINE 25 MG TAB PO SCH (21:00)
[2016-12-08] MEDS: LORAZEPAM 2 MG INJ IV PRN (00:10)
[2016-12-08] MEDS: DIPHENHYDRAMINE 50 MG INJ IV PRN ×2 (02:00→23:11)
[2016-12-08] MEDS: morphine 4 MG/ML VIAL IV PRN ×3 (02:00→23:09)
[2016-12-08 02:20] VITALS: BP 108/66; RESP 20
[2016-12-08] MEDS: PANTOPRAZOLE 40 MG INJ IV SCH (05:55)
[2016-12-08] MEDS: SOD CHLORIDE 0.45% 1,000 ML IV SCH ×3 (05:56→21:46)
[2016-12-08 06:02] LABS: BASOPHIL # 0.1 10^3/ul (0.0-0.1); BASOPHILS % 0.9 % (0.0-2.0); EOSINOPHILS # 0.2 10^3/ul (0.0-0.5); EOSINOPHILS % 3.5 % (0.0-7.0); HEMATOCRIT 37.7 % (37.0-47.0); HEMOGLOBIN 11.7 g/dl (12.0-16.0); LYMPHOCYTES # 2.1 10^3/ul (0.8-2.9); LYMPHOCYTES % 29.8 % (15.0-51.0); MEAN CORPUSCULAR HEMOGLOBIN 29.3 pg (29.0-33.0); MEAN CORPUSCULAR VOLUME 94.3 fl (82.0-101.0); MEAN PLATELET VOLUME 10.2 fl (7.4-10.4); MONOCYTE # 0.5 10^3/ul (0.3-0.9); MONOCYTES % 7.5 % (0.0-11.0); NEUTROPHILS % 58.2 % (39.0-77.0); PLATELET COUNT 221 10^3/UL (140-415); RED CELL DISTRIBUTION WIDTH 13.7 % (11.5-14.5); WHITE BLOOD COUNT 6.9 10^3/ul (4.8-10.8)
[2016-12-08 06:31] LABS: CALCIUM 8.4 mg/dl (8.4-10.2); CREATININE 0.7 mg/dl (0.44-1.00); POTASSIUM 4.7 mmol/L (3.5-5.1)
[2016-12-08 07:24] VITALS: BP 110/78; RESP 20
[2016-12-08] MEDS: NICOTINE (21 MG/24 HR) PATCH TRANSDERM SCH (08:35)
[2016-12-08] MEDS: MULTIVITAMINS THERAPEUTIC TAB PO SCH (08:36)
[2016-12-08] MEDS: CITALOPRAM 20 MG TAB PO SCH (08:36)
[2016-12-08 09:00] VITALS: BP 98/77; PULSE 77; RESP 23
[2016-12-08] MEDS ORDERED: FENTAnyl 50 MCG/ML VIAL ONE ×2 (09:50)
[2016-12-08] MEDS ORDERED: MIDAZOLAM 1 MG/ML 2 ML INJ ONE ×4 (09:50→09:51)
--- NOTE | 2016-12-08 09:58 | OPR ---
Date/Time of Note Date/Time of Note DATE: 12/08/16 TIME: 09:49 Operative Report Free Text/Dictation Recommendations: 1. again would recommend psych consult for her behavior of swallowing foreign bodies, particularly the new foreign body that was swallowed yesterday while in patient (it was new because not seen on KUB on 12/06 but appeared on 12/07). 2. repeat KUB to make sure she did not swallow any new foreign objects 3. ok to discharge if repeat KUB did not show any new foreign objects Procedure Date: Dec 08, 2016 Preoperative Diagnosis abdominal pain, ingestion of metallic foreign body Postoperative Diagnosis ear ring in the cecum Operation Performed colonoscopy with removal of ear ring Surgeon: REKHA GRISSOM MD Anesthesia Type: moderate sedation Estimated Blood Loss: minimal Transfusion Required: no Specimens removed ear ring from the cecum Grafts/Implants: none Complications: no Pt Condition Post Procedure: stable Disposition: PACU Indications abdominal pain and ingestion of foreign body Operative\Procedure Findings 1. diverticulosis 2. ear ring in the cecum Procedure Description After timeout and confirming informed consent, patient was sedated incrementally with 8 mg of versed and 175 mcg of fentanyl. After adequate sedation, I performed IVÁN which has light brown liquid stool on my digit. I then inserted an adult colonoscope from the anus and advanced to the cecum at 90 cm. Bowel prep is better than yesterday. Cecum is reached as visualized by IC valve and appendiceal orifice. A metallic object is identified and grabbed by snare. I then removed the metallic object as I withdraw the colonoscope. REKHA GRISSOM MD Dec 08, 2016 09:58
[2016-12-08 10:05] VITALS: BP 100/57; PULSE 81; RESP 26
[2016-12-08] MEDS ORDERED: DIPHENHYDRAMINE 50 MG INJ ONE (10:07)
[2016-12-08] MEDS: HYDROmorphONE 2 MG/ML SYG IV PRN ×3 (10:52→19:11)
--- NOTE | 2016-12-08 11:27 | PN ---
Date/Time of Note Date/Time of Note DATE: 12/08/16 TIME: 11:26 Assessment/Plan VTE Prophylaxis VTE Prophylaxis Intervention: SCD's Lines/Catheters IV Catheter Type (from Nrsg): Peripheral IV Assessment/Plan Problems: (1) Abdominal pain Status: Acute Comment: She has not had the foreign bodies removed. I am concerned she may have ingested even more and as such I am in agreement with gastroenterology for repeating her KUB after she had the procedure to remove stuff. Anything else shows up she needs tele-psych and we need to remove her possessions. Qualifiers: Abdominal location: generalized Qualified Code: R10.84 - Generalized abdominal pain (2) Swallowed foreign body Status: Acute Comment: She has had them procedurally removed Qualifiers: Encounter type: initial encounter Qualified Code: T18.9XXA - Swallowed foreign body, initial encounter Subjective 24 Hr Interval Summary Free Text/Dictation Patient reports she is still having abdominal pain from an intestinal "abrasion " Constitutional: no complaints Respiratory: no complaints Cardiovascular: no complaints Gastrointestinal: pain (Denies nausea or vomiting) Exam/Review of Systems Vital Signs Vitals Vital Signs Date Time Temp Pulse Resp B/P Pulse Ox O2 Delivery O2 Flow Rate FiO2 12/08/16 10:05 81 26 100/57 99 Room Air 12/08/16 09:00 97.9 Intake and Output 12/07/16 12/07/16 12/08/16 15:00 23:00 07:00 Intake Total 663 ml 1000 ml Balance 663 ml 1000 ml Exam Constitutional: alert, oriented Respiratory: clear to auscultation, normal air movement Cardiovascular: nl pulses, regular rate and rhythm Gastrointestinal: soft, tender (Tender but in an inconsistent fashion) Results Result Diagram: 12/08/16 0527 12/08/16 0527 Results 24 hrs Laboratory Tests Test 12/08/16 05:27 White Blood Count 6.9 Red Blood Count 4.00 L Hemoglobin 11.7 L Hematocrit 37.7 Mean Corpuscular Volume 94.3 Mean Corpuscular Hemoglobin 29.3 Mean Corpuscular Hemoglobin Concent 31.0 L Red Cell Distribution Width 13.7 Platelet Count 221 Mean Platelet Volume 10.2 Neutrophils % 58.2 Lymphocytes % 29.8 Monocytes % 7.5 Eosinophils % 3.5 Basophils % 0.9 Nucleated Red Blood Cells % 0.0 Neutrophils # (Manual) 4.0 Lymphocytes # 2.1 Monocytes # 0.5 Eosinophils # 0.2 Basophils # 0.1 Nucleated Red Blood Cells # 0.0 Sodium Level 142 Potassium Level 4.7 Chloride Level 107 Carbon Dioxide Level 25 Anion Gap 15 Blood Urea Nitrogen 5 L Creatinine 0.70 Glucose Level 61 #L Calcium Level 8.4 Medications Medications Current Medications Citalopram Hydrobromide (Celexa) 40 mg DAILY PO Last administered on 12/07/16 11:26; Admin Dose 40 MG; Start 12/07/16 at 09:00 Multivitamins Therapeutic (Theragran) 1 tab daily PO Last administered on 11:26; Admin Dose 1 TAB; Start 12/07/16 at 09:00 Quetiapine Fumarate (Seroquel) 75 mg HS PO ; Start 12/06/16 at 21:00 Ondansetron HCl (Zofran Inj) 4 mg Q6H PRN IV NAUSEA AND/OR VOMITING Last administered on 12/07/16 12:35; Admin Dose 4 MG; Start 12/06/16 at 13:30 Acetaminophen (Tylenol Tab) 650 mg Q6H PRN PO PAIN LEVEL 1-3 OR FEVER; Start at 13:30 Acetaminophen/ Hydrocodone Bitart ([place] (5/325)) 1 tab Q6H PRN PO MODERATE PAIN LEVEL 4-6; Start 12/06/16 at 13:30 Docusate Sodium (Colace) 100 mg Q12H PRN PO CONSTIPATION; Start 12/06/16 at 13: 30 Magnesium Hydroxide (Milk Of Mag) 30 ml DAILY PRN PO CONSTIPATION; Start at 13:30 Sodium Biphosphate/ Sodium Phosphate (Fleet Enema) 133 ml DAILY PRN [place] CONSTIPATION; Start 12/06/16 at 13:30 Pantoprazole 40 mg 40 mg DAILY@06 IV Last administered on 12/08/16 05:55; Admin Dose 40 MG; Start 12/07/16 at 06:00 Sodium Chloride (1/2 NS) 1,000 ml @ 75 mls/hr [id number] IV Last administered on 12/08/16 05:56; Admin Dose 75 MLS/HR; Start 12/06/16 at 13:15 Lorazepam (Ativan) 0.5 mg Q6H PRN IV ANXIETY Last administered on 12/08/16 00: 10; Admin Dose 0.5 MG; Start 12/06/16 at 13:30 Hydralazine HCl (Apresoline) 10 mg Q6H PRN IV ELEVATED BLOOD PRESSURE; Start at 13:30 Nitroglycerin (Nitroglycerin (Sl Tab) 0.4 Mg) 1 tab Q5M PRN SL ANGINA; Start at 13:30 Nicotine (Nicoderm 21 Mg/ 24hr) 1 patch DAILY TRANSDERM Last administered on 08:35; Admin Dose 1 PATCH; Start 12/06/16 at 18:00 Morphine Sulfate (morphine) 4 mg Q4H PRN IV pain Last administered on 12/08/16 05:55; Admin Dose 4 MG; Start 12/06/16 at 20:00 Diphenhydramine HCl (Benadryl) 25 mg Q6H PRN IV itching Last administered on 02:00; Admin Dose 25 MG; Start 12/06/16 at 20:00 Hydromorphone HCl (Dilaudid) 2 mg Q4H PRN IV PAIN Last administered on 10:52; Admin Dose 2 MG; Start 12/08/16 at 11:00 ANABEL HAQUE MD Dec 08, 2016 11:27
[2016-12-08 13:20] VITALS: BP 111/79; RESP 20
[2016-12-08 19:42] VITALS: BP 105/72; RESP 18
[2016-12-08] MEDS ORDERED: HYDROCODONE/APAP (10/325) TAB PO PRN (23:30)
[2016-12-09] MEDS: QUETIAPINE 25 MG TAB PO SCH (00:43)
[2016-12-09] MEDS: LORAZEPAM 2 MG INJ IV PRN ×2 (01:39→10:08)
[2016-12-09 02:01] VITALS: BP 112/57; RESP 18
[2016-12-09] MEDS: morphine 4 MG/ML VIAL IV PRN ×3 (04:56→13:18)
[2016-12-09] MEDS: PANTOPRAZOLE 40 MG INJ IV SCH (05:01)
[2016-12-09 06:57] LABS: BASOPHILS % 0.8 % (0.0-2.0); EOSINOPHILS # 0.2 10^3/ul (0.0-0.5); EOSINOPHILS % 4.4 % (0.0-7.0); HEMATOCRIT 35.6 % (37.0-47.0); LYMPHOCYTES # 1.8 10^3/ul (0.8-2.9); MEAN CORPUSCULAR HEMOGLOBIN 28.8 pg (29.0-33.0); MEAN CORPUSCULAR HGB CONC 30.9 g/dl (32.0-37.0); MEAN CORPUSCULAR VOLUME 93.2 fl (82.0-101.0); MEAN PLATELET VOLUME 10.5 fl (7.4-10.4); MONOCYTE # 0.5 10^3/ul (0.3-0.9); MONOCYTES % 8.6 % (0.0-11.0); PLATELET COUNT 222 10^3/UL (140-415); RED BLOOD COUNT 3.82 10^6/ul (4.20-5.40); RED CELL DISTRIBUTION WIDTH 13.4 % (11.5-14.5); WHITE BLOOD COUNT 5.3 10^3/ul (4.8-10.8)
[2016-12-09 07:18] LABS: CALCIUM 8.5 mg/dl (8.4-10.2); CREATININE 0.7 mg/dl (0.44-1.00); POTASSIUM 4.5 mmol/L (3.5-5.1)
--- NOTE | 2016-12-09 07:52 | RADRPT ---
PROCEDURE: XR Abdomen. CLINICAL INDICATION: Followup foreign bodies TECHNIQUE: Portable AP supine radiographs of the abdomen COMPARISON: 12/07/2016 FINDINGS: There is interval clearing of the retained fecal material and passage of the foreign bodies. The co gunnar is distended. There is no evidence of obstruction. There are no abnormal calcifications overlyi ng the urinary tracts. The osseus structures are unremarkable. IMPRESSION: Interval clearing of the retained fecal material and passage of the foreign bodies. Physician Rishabh Date Time Electronically viewed and signed by Physician Rishabh on 12/09/2016 07:51 CS/
[2016-12-09] MEDS: CITALOPRAM 20 MG TAB PO SCH (09:00)
[2016-12-09] MEDS: MULTIVITAMINS THERAPEUTIC TAB PO SCH (09:00)
[2016-12-09] MEDS: NICOTINE (21 MG/24 HR) PATCH TRANSDERM SCH (09:02)
[2016-12-09] MEDS: SOD CHLORIDE 0.45% 1,000 ML IV SCH (10:13)
--- NOTE | 2016-12-09 11:22 | DS ---
Date/Time of Note Date/Time of Note DATE: 12/09/16 TIME: 11:17 Discharge Summary Admission/Discharge Info Admit Date/Time Dec 06, 2016 at 10:31 Discharge Date/Time December 09, 2016 Discharge Diagnosis UTI abdominal pain due to foreign body obstruction in the GI tract-jewelry; Patient Condition: Fair Consults Gastroenterology Procedures Operation Performed colonoscopy with removal of ear ring; Operation Performed EGD with metallic foreign body retrieval via large biopsy forcep incomplete colonoscopy due to extremely poor bowel prep Hx of Present Illness This is a 41-year-old female with a history of chronic abdominal pain, irritable bowel syndrome who presents to the emergency department complaining of abdominal pain and bloody stool. About 2 weeks ago, patient's accidentally swallowed an earring and since then she has been experiencing sharp abdominal pain and started noticing bloody stool as well. When she presented to the ER she was tachycardic with a heart rate of 113 otherwise vitals were stable. CBC and a CMP were also within normal limits. KUB shows a metallic body in the proximal transverse colon. She has already been seen by GI was planned for a colonoscopy. . Hospital Course 1. Unintentional Foreign body ingestion 12/06/16:Abdomen Xray: Metallic foreign body in the right upper quadrant likely within the proximal transverse colon. -GI eval appreciated. On colon prep - if no spontaneous expel doesnot happen proceed with colonoscopy -Continue pain management as needed 2. Anxiety disorders -Continue Ativan and Supportive care PLAN:F/u with GI recs on foreign body removal. Case discussed with Patient recuperated nicely. She reports that her pain has decreased. Please note she was requesting narcotic analgesia but that has been tapered. She is now stable for discharge home in improved condition. She is not a hazard to herself or others she has no known communicable diseases her rehabilitation potential is good. She will follow-up with her primary care physician in 1 week Home Meds Active Scripts Nitrofurantoin Monohyd Macrocr* (Macrobid*) 100 Mg Capsr, 100 MG PO BID for 7 Days, CAP Prov:ERASMO EPSTEIN MD 09/20/16 Ondansetron (Ondansetron Odt) 4 Mg Tab.rapdis, 4 MG PO Q6H Y for NAUSEA AND/OR VOMITING, #10 TAB Prov:ERASMO EPSTEIN MD 09/20/16 Reported Medications Citalopram Hydrobromide* (Citalopram Hydrobromide*) 40 Mg Tablet, 40 MG PO DAILY , #30 TAB 09/20/16 Quetiapine Fumarate* (Quetiapine Fumarate*) 25 Mg Tablet, 75 MG PO HS, TAB 09/20/16 Clonazepam* (Clonazepam*) 1 Mg Tablet, 5 MG PO Q8H Y for ANXIETY, TAB 09/20/16 Multivitamins* (Multivitamins*) 1 Tab Tablet, 1 TAB PO daily 04/29/12 Primary Care Provider Jairo Mathew MD Time spent on discharge: > 30 minutes Pending Labs Laboratory Tests Test 12/09/16 05:44 White Blood Count 5.310^3/ul (4.8-10.8) Red Blood Count 3.8210^6/ul (4.20-5.40) Hemoglobin 11.0g/dl (12.0-16.0) Hematocrit 35.6% (37.0-47.0) Mean Corpuscular Volume 93.2fl (82.0-101.0) Mean Corpuscular Hemoglobin 28.8pg (29.0-33.0) Mean Corpuscular Hemoglobin Concent 30.9g/dl (32.0-37.0) Red Cell Distribution Width 13.4% (11.5-14.5) Platelet Count 87795^3/UL (140-415) Mean Platelet Volume 10.5fl (7.4-10.4) Neutrophils % 52.0% (39.0-77.0) Lymphocytes % 34.0% (15.0-51.0) Monocytes % 8.6% (0.0-11.0) Eosinophils % 4.4% (0.0-7.0) Basophils % 0.8% (0.0-2.0) Nucleated Red Blood Cells % 0.0/100WBC (0.0-0.0) Neutrophils # (Manual) 2.710^3/ul (1.7-7.5) Lymphocytes # 1.810^3/ul (0.8-2.9) Monocytes # 0.510^3/ul (0.3-0.9) Eosinophils # 0.210^3/ul (0.0-0.5) Basophils # 0.010^3/ul (0.0-0.1) Nucleated Red Blood Cells # 0.010^3/ul (0.0-0.0) Sodium Level 138mmol/L (135-144) Potassium Level 4.5mmol/L (3.5-5.1) Chloride Level 105mmol/L (97-110) Carbon Dioxide Level 28mmol/L (21-31) Anion Gap 10 (8-16) Blood Urea Nitrogen 4mg/dl (7-20) Creatinine 0.70mg/dl (0.44-1.00) Glucose Level 111mg/dl (70-220) Calcium Level 8.5mg/dl (8.4-10.2) ANABEL HAQUE MD Dec 09, 2016 11:22
--- NOTE | 2016-12-09 11:23 | PDOCDIS ---
Discharge Instructions DIAGNOSIS Discharge Diagnosis UTI abdominal pain due to foreign body obstruction in the GI tract-jewelry; CONDITION Patient Condition: Fair HOME CARE INSTRUCTIONS: Special Diet: Regular/vagetarian ACTIVITY: Activity Restrictions: No Restrictions (Be careful with jewelry) FOLLOW UP/APPOINTMENTS Follow-up Plan See primary care doctor in 1 week ANABEL HAQUE MD Dec 09, 2016 11:23
--- NOTE | 2016-12-09 11:28 | CONS ---
Date/Time of Note Date/Time of Note DATE: 12/09/16 TIME: 11:24 Assessment/Plan Assessment/Plan Chief Complaint/Hosp Course Impression: 1. foreign body ingestion 2. s/p EGD on 12/07/16: gastritis and removed metallic object that is new since initial admission 3. s/p colonoscopy on 12/08/16: diverticulosis and removed ear ring in the cecum Recommendations: 1. ok from GI perspective to me home 2. consider psych consult Problems: Consultation Date/Type/Reason Admit Date/Time Dec 06, 2016 at 10:31 Initial Consult Date 12/06/16 Type of Consultation: GI 24 HR Interval Summary Free Text/Dictation improving abdominal pain, no n/v Constitutional: improved Exam/Review of Systems Vital Signs Vitals Vital Signs Date Time Temp Pulse Resp B/P Pulse Ox O2 Delivery O2 Flow Rate FiO2 12/09/16 02:01 98.2 72 18 112/57 98 12/08/16 10:05 Room Air Intake and Output 12/08/16 12/08/16 12/09/16 15:00 23:00 07:00 Intake Total 1780 ml 1345 ml Output Total 0 ml Balance 1780 ml 1345 ml Exam Constitutional: alert, oriented, well developed Psych: nl mood/affect, no complaints Head: atraumatic, normocephalic Eyes: EOMI, nl conjunctiva, nl lids, nl sclera ENMT: mucosa pink and moist, nl external ears & nose, nl lips & teeth, nl nasal mucosa & septum Neck: non-tender, supple Respiratory: clear to auscultation, normal air movement Cardiovascular: nl pulses, regular rate and rhythm Gastrointestinal: bowel sounds, soft, tender (epigastric and LLQ) Results Result Diagram: 12/09/16 0544 12/09/16 0544 Results 24 hrs Laboratory Tests Test 12/09/16 05:44 White Blood Count 5.3 # Red Blood Count 3.82 L Hemoglobin 11.0 L Hematocrit 35.6 L Mean Corpuscular Volume 93.2 Mean Corpuscular Hemoglobin 28.8 L Mean Corpuscular Hemoglobin Concent 30.9 L Red Cell Distribution Width 13.4 Platelet Count 222 Mean Platelet Volume 10.5 H Neutrophils % 52.0 Lymphocytes % 34.0 Monocytes % 8.6 Eosinophils % 4.4 Basophils % 0.8 Nucleated Red Blood Cells % 0.0 Neutrophils # (Manual) 2.7 Lymphocytes # 1.8 Monocytes # 0.5 Eosinophils # 0.2 Basophils # 0.0 Nucleated Red Blood Cells # 0.0 Sodium Level 138 Potassium Level 4.5 Chloride Level 105 Carbon Dioxide Level 28 Anion Gap 10 # Blood Urea Nitrogen 4 L Creatinine 0.70 Glucose Level 111 # Calcium Level 8.5 Medications Medications Current Medications Citalopram Hydrobromide (Celexa) 40 mg DAILY PO Last administered on 12/09/16 09:00; Admin Dose 40 MG; Start 12/07/16 at 09:00 Multivitamins Therapeutic (Theragran) 1 tab daily PO Last administered on 09:00; Admin Dose 1 TAB; Start 12/07/16 at 09:00 Quetiapine Fumarate (Seroquel) 75 mg HS PO Last administered on 12/09/16 00:43 ; Admin Dose 75 MG; Start 12/06/16 at 21:00 Ondansetron HCl (Zofran Inj) 4 mg Q6H PRN IV NAUSEA AND/OR VOMITING Last administered on 12/07/16 12:35; Admin Dose 4 MG; Start 12/06/16 at 13:30 Acetaminophen (Tylenol Tab) 650 mg Q6H PRN PO PAIN LEVEL 1-3 OR FEVER; Start at 13:30 Docusate Sodium (Colace) 100 mg Q12H PRN PO CONSTIPATION; Start 12/06/16 at 13: 30 Magnesium Hydroxide (Milk Of Mag) 30 ml DAILY PRN PO CONSTIPATION; Start at 13:30 Sodium Biphosphate/ Sodium Phosphate (Fleet Enema) 133 ml DAILY PRN OK CONSTIPATION; Start 12/06/16 at 13:30 Pantoprazole 40 mg 40 mg DAILY@06 IV Last administered on 12/09/16 05:01; Admin Dose 40 MG; Start 12/07/16 at 06:00 Sodium Chloride (1/2 NS) 1,000 ml @ 75 mls/hr [id number] IV Last administered on 12/09/16 10:13; Admin Dose 75 MLS/HR; Start 12/06/16 at 13:15 Lorazepam (Ativan) 0.5 mg Q6H PRN IV ANXIETY Last administered on 9/3/17at 10: 08; Admin Dose 0.5 MG; Start 12/06/16 at 13:30 Hydralazine HCl (Apresoline) 10 mg Q6H PRN IV ELEVATED BLOOD PRESSURE; Start at 13:30 Nitroglycerin (Nitroglycerin (Sl Tab) 0.4 Mg) 1 tab Q5M PRN SL ANGINA; Start at 13:30 Nicotine (Nicoderm 21 Mg/ 24hr) 1 patch DAILY TRANSDERM Last administered on 09:02; Admin Dose 1 PATCH; Start 12/06/16 at 18:00 Morphine Sulfate (morphine) 4 mg Q4H PRN IV pain Last administered on 12/09/16 09:02; Admin Dose 4 MG; Start 12/06/16 at 20:00 Diphenhydramine HCl (Benadryl) 25 mg Q6H PRN IV itching Last administered on 23:11; Admin Dose 25 MG; Start 12/06/16 at 20:00 Acetaminophen/ Hydrocodone Bitart ([place] (10/325)) 1 tab Q4H PRN PO PAIN; Start 12/08/16 at 23:30 REKHA GRISSOM MD Dec 09, 2016 11:28
== END 2016-12-09 15:30 | disposition home or self-care (01) | DRG 395 ==
LOC: FTE 08:01 → MS2 10:31
PROVIDERS: ADMIT Internal Medicine; ATTEND Internal Medicine
PROC: 0DJD8ZZ Inspection of Lower Intestinal Tract, Via Natural or Artificial Opening Endoscopic (ICD-10-PCS; 2016-12-07)
PROC: 0DJ08ZZ Inspection of Upper Intestinal Tract, Via Natural or Artificial Opening Endoscopic (ICD-10-PCS; 2016-12-07 18:30)
PROC: 0DCH8ZZ Extirpation of Matter from Cecum, Via Natural or Artificial Opening Endoscopic (ICD-10-PCS; principal; 2016-12-08 09:00)
DX: T18.4XXA Foreign body in colon, initial encounter (principal); F41.9 Anxiety disorder, unspecified; X58.XXXA Exposure to other specified factors, initial encounter; K58.9 Irritable bowel syndrome, unspecified; G89.29 Other chronic pain; K57.90 Diverticulosis of intestine, part unspecified, without perforation or abscess without bleeding
CPT/HCPCS: 74000; 80048; 80053; 80061; 80307; 81001; 81003; 83036; 83690; 83735; 84100; 84439; 84443; 85025; 85610; 85730; 88300; C9113; J1170; J1200; J1885; J2060; J2250; J2270; J2405; J3010